=== PATIENT | female | born 1985 | race American Indian/Alaskan Native ===

== ENCOUNTER 2023-08-28 16:50 | Emergency (ER) | payer MEDICAID ==
[2023-08-28] MEDS ORDERED: Albuterol/Ipratropium 3.0-0.5 MG/3 ML Neb Soln NEB ONE (17:43)
[2023-08-28] MEDS ORDERED: methylPREDNISolone Sodium Succinate 125 MG/2 ML SDV IM ONE (17:47)
[2023-08-28] MEDS ORDERED: Amoxicillin/Clavulanate K 875-125 MG Tab PO STA (17:55)
== END 2023-08-28 18:50 | disposition home or self-care (01) ==
LOC: FB.ED 16:50
DX: U07.0 Vaping-related disorder (principal)
CPT/HCPCS: 71045; 94640; 96372; 99285; A9270; J2930; J7620

== ENCOUNTER 2025-04-01 13:12 | Emergency (ER) | payer MEDICAID ==
[2025-04-01] MEDS: LORazepam 2 MG/ML SDV IM ONE (13:42)
== END 2025-04-01 14:00 | disposition home or self-care (01) ==
LOC: FB.ED 13:12
DX: F41.1 Generalized anxiety disorder (principal); F41.0 Panic disorder [episodic paroxysmal anxiety]; E03.9 Hypothyroidism, unspecified; Z86.16 Personal history of COVID-19; Z79.51 Long term (current) use of inhaled steroids; Z79.890 Hormone replacement therapy; Z79.899 Other long term (current) drug therapy
CPT/HCPCS: 96372; 99283; J2060

== ENCOUNTER 2025-05-23 18:50 | Emergency (ER) | payer MEDICAID ==
[2025-05-23] MEDS: Ketorolac 30 MG/ML SDV IM ONE (19:16)
== END 2025-05-23 20:11 | disposition home or self-care (01) ==
LOC: FB.ED 18:50
DX: R07.89 Other chest pain (principal); E03.9 Hypothyroidism, unspecified; Z79.51 Long term (current) use of inhaled steroids; Z79.899 Other long term (current) drug therapy; Z79.890 Hormone replacement therapy; Z86.16 Personal history of COVID-19
CPT/HCPCS: 96372; 99284; J1885